=== PATIENT | male | born 1945 | race Caucasian/White ===

== ENCOUNTER 2017-02-14 10:15 | Observation (INO) ==
[2017-02-14] MEDS ORDERED: MORPHINE 2 MG/1 ML SYRINGE IV PRN (11:33)
[2017-02-14] MEDS ORDERED: ONDANSETRON 4 MG/2 ML VIAL IV PRN ×2 (11:33→14:15)
[2017-02-14] MEDS ORDERED: ENOXAPARIN 100 MG/ML SYRINGE SUBCUT STA (11:33)
[2017-02-14] MEDS ORDERED: ASPIRIN 325 MG TABLET PO STA (11:33)
[2017-02-14 11:55] LABS: Basophils % 0.3 % (0.0-0.8); Eosinophils % 0.4 % (0.00-10.9); Hematocrit 51.2 VOL% (42.0-52.0); Immature Granulocytes % 0.5 %; Immature Granulocytes Absolute 0.04 #; Lymphocytes # 1.5 10*3/uL (1.4-4.0); Lymphocytes % 19.2 % (21.2-54.2); Mean Corpuscular HGB Conc 33.2 GM/DL (32-36); Mean Corpuscular Hemoglobin 29 PG (27-34); Mean Corpuscular Volume 86.2 FL (87-102); Mean Platelet Volume 8.4 FL (9.6-12.0); Monocytes # 0.5 10*3/uL (0.11-0.8); Monocytes % 6.3 % (1.7-12.7); Neutrophils # 5.8 10*3/uL (1.4-7.4); Neutrophils % 73.3 % (38.7-73.9); Platelet Count 213 T/CUMM (130-400); Red Blood Count 5.94 MC/CUMM (3.8-5.5); Red Cell Distribution Width 13.4 % (9.3-17.3)
[2017-02-14 12:03] LABS: PT Patient Result 10.6 SECS; Partial Thromboplastin Time 24.9 SECS (0-40)
[2017-02-14 12:26] LABS: Albumin 4.3 G/DL (3.4-5.0); Bilirubin,Total 0.5 MG/DL (0.2-1.0); Calcium 9.3 MG/DL (8.5-10.1); Osmolality,Calculated 281.3 MOS/KG (273-304); Potassium 4.3 MMOL/L (3.5-5.1); Total Protein 7.3 G/DL (6.4-8.3)
[2017-02-14] MEDS ORDERED: ENOXAPARIN 100 MG/ML SYRINGE SUBCUT ONE (12:50)
[2017-02-14] MEDS ORDERED: LORazepam 1 MG TABLET PO STA (12:59)
[2017-02-14] MEDS ORDERED: LORazepam 1 MG TABLET ONE (13:00)
[2017-02-14] MEDS ORDERED: guaiFENesin/DM ER 600-30 MG TABLET PO PRN (14:15)
[2017-02-14] MEDS ORDERED: ZALEPLON 5 MG CAPSULE PO PRN (14:15)
[2017-02-14] MEDS ORDERED: ACETAMINOPHEN 325 MG TABLET PO PRN (14:15)
[2017-02-14] MEDS ORDERED: BISACODYL 5 MG TABLET PO PRN (14:15)
[2017-02-14] MEDS ORDERED: CARVEDILOL 3.125 MG TABLET PO SCH (14:30)
[2017-02-14] MEDS ORDERED: CARVEDILOL 3.125 MG TABLET ONE ×2 (15:34→15:37)
[2017-02-14 15:38] LABS: Troponin I Only 0.215 NG/ML (0.00-0.045)
[2017-02-14] MEDS ORDERED: MAGNESIUM SULF RIDER 2 GM in PREMIX 1 EACH IV PRN (17:30)
[2017-02-14] MEDS ORDERED: POTASSIUM CHLORIDE RIDER 10 MEQ in PREMIX 1 EACH IV PRN (17:30)
[2017-02-14 18:29] LABS: Troponin I Only 0.374 NG/ML (0.00-0.045)
[2017-02-14] MEDS ORDERED: CARVEDILOL 6.25 MG TABLET PO SCH (21:00)
[2017-02-14] MEDS: ROSUVASTATIN 20 MG TABLET PO SCH (21:23)
[2017-02-14] MEDS: CARVEDILOL 12.5 MG TABLET PO SCH (21:23)
[2017-02-15 05:36] LABS: Basophils % 0.3 % (0.0-0.8); Eosinophils # 0.1 10*3/uL (0.0-0.87); Eosinophils % 1.9 % (0.00-10.9); Hematocrit 45.6 VOL% (42.0-52.0); Immature Granulocytes % 0.4 %; Immature Granulocytes Absolute 0.03 #; Lymphocytes # 2.2 10*3/uL (1.4-4.0); Lymphocytes % 30.7 % (21.2-54.2); Mean Corpuscular HGB Conc 32.9 GM/DL (32-36); Mean Corpuscular Hemoglobin 29 PG (27-34); Mean Corpuscular Volume 87.2 FL (87-102); Mean Platelet Volume 8.6 FL (9.6-12.0); Monocytes # 0.7 10*3/uL (0.11-0.8); Monocytes % 9.6 % (1.7-12.7); Neutrophils # 4.1 10*3/uL (1.4-7.4); Neutrophils % 57.1 % (38.7-73.9); Platelet Count 201 T/CUMM (130-400); Red Blood Count 5.23 MC/CUMM (3.8-5.5); Red Cell Distribution Width 13.7 % (9.3-17.3); White Blood Count 7.3 T/CUMM (4-12)
[2017-02-15] MEDS ORDERED: DIAZEPAM 5 MG TABLET PO ONE ×2 (06:00→08:32)
[2017-02-15] MEDS ORDERED: diphenhydrAMINE CAP 25 MG CAPSULE PO ONE (06:00)
[2017-02-15 06:06] LABS: Calcium 8.6 MG/DL (8.5-10.1); Osmolality,Calculated 281.3 MOS/KG (273-304); Potassium 4.1 MMOL/L (3.5-5.1); Risk Ratio 3.89; VLDL CHOLESTEROL 19.8 MG/DL
[2017-02-15] MEDS ORDERED: diphenhydrAMINE CAP 50 MG CAPSULE PO ONE (08:33)
[2017-02-15] MEDS: PANTOPRAZOLE 40 MG TABLET PO SCH (09:00)
[2017-02-15] MEDS ORDERED: ENOXAPARIN 40 MG/0.4 ML SYRINGE SUBCUT SCH (09:00)
[2017-02-15] MEDS ORDERED: TURMERIC ROOT EXTRACT 500 MG PO SCH (09:00)
[2017-02-15] MEDS: TAMSULOSIN 0.4 MG CAPSULE PO SCH (09:01)
[2017-02-15] MEDS: ASPIRIN EC 81 MG TABLET PO SCH (09:01)
[2017-02-15] MEDS: CARVEDILOL 12.5 MG TABLET PO SCH ×2 (09:01→21:25)
[2017-02-15] MEDS ORDERED: HEPARIN/NACL 0.9% 2 UNITS/ML 2,000 ML IV ONE (09:02)
[2017-02-15] MEDS ORDERED: MIDAZOLAM 2 MG/2 ML VIAL ONE (09:28)
[2017-02-15] MEDS ORDERED: HYDROmorphone 2 MG/1 ML VIAL ONE (09:28)
[2017-02-15] MEDS ORDERED: NITROGLYCERIN DRIP 50 MG/250 ML BOTTLE IV ONE (09:45)
[2017-02-15] MEDS ORDERED: VERAPAMIL 5 MG/2 ML VIAL ONE (09:45)
[2017-02-15] MEDS ORDERED: BIVALIRUDIN 250 MG VIAL IV ONE (09:58)
[2017-02-15] MEDS ORDERED: TICAGRELOR 90 MG TABLET ONE (10:28)
[2017-02-15] MEDS ORDERED: SODIUM CHLORIDE 0.9% 1,000 ML IV SCH (10:30)
[2017-02-15] MEDS ORDERED: POLYETHYLENE GLYCOL POWDER 17 GM PACK PO PRN (11:14)
[2017-02-15] MEDS: ASCORBIC ACID 500 MG TABLET PO SCH (13:52)
[2017-02-15] MEDS: GLUCOSAMINE 500 MG TABLET PO SCH (13:52)
[2017-02-15] MEDS: CHOLECALCIFEROL 1,000 UNIT TABLET PO SCH (13:52)
[2017-02-15] MEDS: ROSUVASTATIN 20 MG TABLET PO SCH (21:25)
[2017-02-16 05:13] LABS: Basophils % 0.4 % (0.0-0.8); Eosinophils # 0.1 10*3/uL (0.0-0.87); Hematocrit 44.5 VOL% (42.0-52.0); Hemoglobin 15.1 GM/DL (14.0-18.0); Immature Granulocytes % 0.3 %; Immature Granulocytes Absolute 0.02 #; Lymphocytes # 1.7 10*3/uL (1.4-4.0); Lymphocytes % 24.1 % (21.2-54.2); Mean Corpuscular HGB Conc 33.9 GM/DL (32-36); Mean Corpuscular Hemoglobin 29 PG (27-34); Mean Corpuscular Volume 85.2 FL (87-102); Mean Platelet Volume 8.7 FL (9.6-12.0); Monocytes # 0.6 10*3/uL (0.11-0.8); Monocytes % 8.9 % (1.7-12.7); Neutrophils # 4.4 10*3/uL (1.4-7.4); Neutrophils % 64.3 % (38.7-73.9); Platelet Count 206 T/CUMM (130-400); Red Blood Count 5.22 MC/CUMM (3.8-5.5); Red Cell Distribution Width 13.6 % (9.3-17.3); White Blood Count 6.9 T/CUMM (4-12)
[2017-02-16 05:35] LABS: Calcium 8.3 MG/DL (8.5-10.1); Osmolality,Calculated 281.3 MOS/KG (273-304); Potassium 4.2 MMOL/L (3.5-5.1)
[2017-02-16 05:42] LABS: Troponin I Only 0.324 NG/ML (0.00-0.045)
[2017-02-16 07:42] VITALS: BP 129/75
[2017-02-16] MEDS: GLUCOSAMINE 500 MG TABLET PO SCH (08:32)
[2017-02-16] MEDS: ASPIRIN EC 81 MG TABLET PO SCH (08:32)
[2017-02-16] MEDS: CHOLECALCIFEROL 1,000 UNIT TABLET PO SCH (08:32)
[2017-02-16] MEDS: TAMSULOSIN 0.4 MG CAPSULE PO SCH (08:33)
[2017-02-16] MEDS: PANTOPRAZOLE 40 MG TABLET PO SCH (08:33)
[2017-02-16] MEDS: ASCORBIC ACID 500 MG TABLET PO SCH (08:33)
[2017-02-16] MEDS: CARVEDILOL 12.5 MG TABLET PO SCH (08:33)
[2017-02-16] MEDS ORDERED: TICAGRELOR 90 MG TABLET PO SCH (09:00)
== END 2017-02-16 09:48 | disposition home or self-care (01) ==
LOC: N.ED 10:15 → N.EDINP 10:15 → N.TELEN 17:13
PROVIDERS: ADMIT Internal Medicine Cardiovascular Disease; ATTEND Internal Medicine Cardiovascular Disease
PROC: CLCCHCL (ICD-10-PCS; 2017-02-15 09:45)